=== PATIENT | female | born 1955 | race Caucasian/White ===

== ENCOUNTER → 2022-02-13 14:45 | Outpatient (CLI) | payer OTHER, SELFPAY ==
--- NOTE | ~2022-02-13 | XR_ITS ---
XR facial bones min 3V DATE: 02/13/2022 16:10 INDICATION: Radiculopathy TECHNIQUE: taryn Domínguez, lateral and submental vertical views. Zygomatic arch views COMPARISON: None FINDINGS: Nasal bones, anterior maxillary spine, zygomatic arches, frontozygomatic sutures are intact . Orbital rims appear normal. No apparent orbital blowout fracture. The paranasal sinuses and mastoid air cells are normally developed and aerated IMPRESSION: Negative Reviewed, dictated and finalized at location A. IMPRESSION: Negative
--- NOTE | ~2022-02-13 | XR_ITS ---
XR cervical spine 4-5V DATE: 02/13/2022 16:10 INDICATION: Radiculopathy TECHNIQUE: AP, open-mouth, lateral and swimmer views COMPARISON: 02/13/2022 Thoracic spine FINDINGS: C1 and C2 are normally aligned and the odontoid process is intact. No fracture or dislocati on or locked facet or prevertebral soft tissue swelling There is minimal anterolisthesis at C3-4. There is mild degenerative disc disease at C4-5. Very prominent bridging anterior osteophyte at C5-6. Moderate degenerative disc disease and prominent anterior posterior spurring at C6-7. Uncovertebral joint spurring in the mid and lower cervical spine and degenerative change throughout t he apophyseal joints. IMPRESSION: Prominent cervical spondylosis Reviewed, dictated and finalized at location A.
--- NOTE | ~2022-02-13 | XR_ITS ---
XR thoracic spine 3V DATE: 02/13/2022 16:10 INDICATION: Pain, radiculopathy TECHNIQUE: AP, lateral, swimmer views COMPARISON: None FINDINGS: Very prominent bridging osteophytes of the mid and lower thoracic spine consistent with dif fuse idiopathic skeletal hyperostosis. There is a brightly 12 degrees levoscoliosis of the lower thoracic spine. No fracture or dislocation or bone destruction is detected. The thoracic pedicles are intact. No para spinal soft tissue thickening. IMPRESSION: Diffuse idiopathic skeletal hyperostosis Mild lower thoracic levoscoliosis Reviewed, dictated and finalized at location A.
== END ==
PROVIDERS: PCP Family Medicine Sports Medicine
DX: M48.14 Ankylosing hyperostosis [Forestier], thoracic region (principal); M47.892 Other spondylosis, cervical region
CPT/HCPCS: 70150; 72050; 72072

== ENCOUNTER → 2023-06-03 13:50 | Outpatient (CLI) | payer MEDICARE, OTHER, SELFPAY ==
--- NOTE | ~2023-06-03 | XR_ITS ---
XR hip LT 2V w AP pelvis 06/03/2023 14:15 Indication: Hip pain. Procedure: AP pelvis and 2 views left hip Comparison: No prior studies for comparison. Findings: Pelvic rings are intact. Mild osteoarthritis of the hips. Sacral foramen are symmetric. No fracture or traumatic malalignment. Impression: 1: Mild osteoarthritis of the hips. Reviewed, dictated and finalized at location B. Impression: 1: Mild osteoarthritis of the hips.
== END ==
PROVIDERS: PCP Chiropractor; Visit Provider Family Medicine Sports Medicine
DX: M16.0 Bilateral primary osteoarthritis of hip (principal); M53.3 Sacrococcygeal disorders, not elsewhere classified
CPT/HCPCS: 73502

== ENCOUNTER 2023-11-13 09:05 | Outpatient (CLI) | payer MEDICARE, OTHER, SELFPAY ==
--- NOTE | ~2023-11-13 | XR_ITS ---
EXAMINATION: XR chest 2V DATE: 11/13/2023 09:31 INDICATION: Right breast pain with new lump. Prior left breast cancer. TECHNIQUE: frontal and lateral views of the chest were obtained. COMPARISON: None FINDINGS: The lungs are clear with no focal airspace opacities, pulmonary edema, pleural effusion or pneumothor ax. The cardiomediastinal silhouette is normal. Status post left mastectomy with multiple surgical cl ips at the left axilla consistent with associated lymph node dissection. Likely embolization coils in the left upper quadrant. Moderate thoracic spondylosis. IMPRESSION: 1. No acute cardiopulmonary disease. Reviewed, dictated and finalized at location A.
== END 2023-11-13 09:06 ==
PROVIDERS: PCP Chiropractor; Visit Provider Family Medicine Sports Medicine
DX: C50.912 Malignant neoplasm of unspecified site of left female breast (principal); M89.8X1 Other specified disorders of bone, shoulder
CPT/HCPCS: 71046

== ENCOUNTER 2023-12-14 08:52 | Outpatient (CLI) | payer MEDICARE, OTHER, SELFPAY ==
--- NOTE | ~2023-12-14 | MMUS_ITS ---
EXAMINATION: MM diagnostic milan RT w sriram, US breast RT complete HISTORY: Pain and stinging behind the right nipple. Status post left mastectomy for breast cancer. TECHNIQUE: Full field and spot 3-D tomosynthesis images of the right breast were performed and synthe tic 2-D images were generated. CAD analysis was submitted and interpreted. High resolution complete r ight breast ultrasound examination: L4 quadrants and subareolar area was performed. COMPARISON: None BREAST PARENCHYMAL COMPOSITION: There are scattered areas of fibroglandular density. FINDINGS: MAMMOGRAPHIC FINDINGS: No suspicious mass or architectural distortion, malignant calcification, skin thickening or retractio n is detected. ULTRASOUND: No suspicious mass or shadowing, cyst or other significant sonographic abnormality of the right breas t is detected. IMPRESSION: 1. Status post left mastectomy for breast cancer. No evidence of right breast malignancy 2. Routine annual mammographic screening is recommended BI-RADS Category 1: Negative Reviewed, dictated and finalized at location A. IMPRESSION: 1. Status post left mastectomy for breast cancer. No evidence of right breast m alignancy 2. Routine annual mammographic screening is recommended BI-RADS Category 1: Negative
== END 2023-12-14 08:53 ==
LOC: MICIMG 08:54
PROVIDERS: PCP Family Medicine Sports Medicine; Visit Provider Family Medicine Sports Medicine
DX: R92.8 Other abnormal and inconclusive findings on diagnostic imaging of breast (principal); Z90.12 Acquired absence of left breast and nipple; Z85.3 Personal history of malignant neoplasm of breast
CPT/HCPCS: 76641; 77061; 77065; G0279